=== PATIENT | male | born 1995 | race Caucasian/White ===

== ENCOUNTER 2020-03-22 07:01 | Emergency (ER) | payer SELFPAY ==
[2020-03-22 07:16] VITALS: BP 132/88; PULSE 58; RESP 18; TEMP 36.7; O2SAT 99; BMI 29.9
--- NOTE | 2020-03-22 07:31 | W.ED.EYEPROB ---
HPI - Eye Problem General: Chief complaint: Eye Problems Stated complaint: Left Eye Swelling/Pain Time Seen by Provider: 03/22/20 07:07 History of Present Illness: HPI Narrative: Patient comes in eye redness x2 and half days. Said he just laying on the couch and his eyes started burning hurting and is been red ever since. As this happened about 4 months ago chief complaint: eye redness Onset (ago): day(s) Onset description: gradual Duration: constant and progressively worsening Location: left eye Eye Symptoms: burning, redness and pain Place: home Mechanism: none Severity: moderate If Pain, Quality: burning Associated symptoms: Reports no associated symptoms; Denies fever(s) Treatments Prior to Arrival: none Review of Systems Const: Denies: fever(s) or chills Eyes: Reports: blurry vision and eye redness; Denies: eye discharge ENMT: Denies: throat pain, enlarged tonsils, mouth pain or nasal congestion Psych: Denies: anxiety or depression Physical Exam Const: COMMON NORMALS: no acute distress Eye: COMMON NORMALS: Equal, round and reactive pupils present ALIGNMENT: Yes alignment normal PERIORBITAL: periorbital findings normal EYELID: eyelids normal CONJUNCTIVA: Yes conjunctival abnormal (Very red left) positive left SCLERA: scleral abnormal Laterality of scleral abnormality: positive left (Very red) CORNEA: Yes corneas normal PUPIL: Yes Equal, round and reactive pupils present Psych: COMMON NORMALS: mental status grossly normal Course Vital Signs: Vital signs: Vital Signs Temperature 98.0 F 03/22/20 07:16 Pulse Rate 58 L 03/22/20 07:16 Respiratory Rate 18 03/22/20 07:16 Blood Pressure 132/88 03/22/20 07:16 Pulse Oximetry 99 03/22/20 07:16 Discharge Plan Discharge Patient Disposition: Home Clinical Impression: Acute iritis Condition: Stable Prescriptions: New Zaditor 0.025 % (0.035 %) drops 1 drp ophthalmic (eye) BID 7 Days Qty: 5 RF: 0 ciprofloxacin HCl 0.3 % drops 1 drp ophthalmic (eye) Q4H 5 Days Qty: 5 RF: 0 Discharge Orders: Discharge Order (Routine); Ordered 03/22/20 Ordered By: Farooq Ashby Referrals: Kandy Ureña MD [Primary Care Provider] - Discharge Diet: Usual diet Discharge Activity: Resume usual activity Patient Instructions: Iritis (ED) Activity Restrictions/Additional Instructions: Follow-up with medical provider as directed. Take medications as prescribed. Return to the ER or your medical provider if condition worsens. Please read and understand discharge instructions. If any questions ask please. Follow-up with [facility] if not better in 1 day Coding Level of Care Code ED Human Services Program Specialist for Harpreet Garnica
== END 2020-03-22 07:40 | disposition home or self-care (01) ==
PROVIDERS: Emergency Provider Nurse Practitioner Family; PCP Internal Medicine
DX: H20.00 Unspecified acute and subacute iridocyclitis (principal)
CPT/HCPCS: 12345; 99281; 99282

== ENCOUNTER → 2021-06-04 13:52 | Outpatient (BNVA) | payer OTHER, SELFPAY | PROVIDERS: PCP Internal Medicine; Visit Provider Registered Nurse | DX: Z20.822 Contact with and (suspected) exposure to COVID-19 (principal) | CPT/HCPCS: 87635 ==

== ENCOUNTER 2021-08-08 23:21 | Emergency (ER) | payer SELFPAY ==
[2021-08-08 23:29] VITALS: BP 147/102; PULSE 100; RESP 18; TEMP 36.6; O2SAT 97; BMI 34.2
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
[2021-08-09 00:12] LABS: Basophils % 0.6 %; Eosinophils % 0.6 %; Hematocrit 52.1 % (42.0-52.0); Lymphocytes # 2.9 10^3/uL (0.8-4.8); Lymphocytes % 41.6 %; Mean Corpuscular HGB Conc 34.5 g/dL (30.0-36.0); Mean Corpuscular Hemoglobin 29.2 pg (28.0-34.0); Mean Corpuscular Volume 84.4 fl (80-94); Mean Platelet Volume 9.8 fL (7.4-10.4); Monocytes # 0.6 10^3/uL (0.2-0.9); Monocytes % 8.4 %; Neutrophils # 3.34 10^3/uL (1.8-7.7); Neutrophils % 48.7 %; Nucleated Red Blood Cells % 0 %; Platelet Count 339 10^3/cmm (130-400); Red Blood Count 6.17 10^6/uL (4.1-5.3); Red Cell Distribution Width 12.6 % (12.1-15.1); White Blood Count 6.9 10^3/uL (4.0-10.0)
[2021-08-09 00:20] LABS: Add Urine Microscopic? YES; Bilirubin Urine Neg (Negative); Blood Urine Neg (Negative); Glucose Urine UA Norm (Normal); Ketones Urine Negative (Negative); Leukocyte Esterase Urine Negative (Negative); Mucus Urine TRACE /hpf; Nitrate Urine Negative (Negative); Protein Urine 1+ (Negative); Specific Gravity, Urine 1.015 (1.005-1.030); Urine Appearance Clear (CLEAR); Urine Color Straw (Yellow); Urobilinogen Urine Norm (Negative); pH Urine 6 (5-7)
[2021-08-09 00:21] LABS: Amphetamines Screen Urine Negative (Negative); Barbiturates Screen Urine Negative (Negative); Benzodiazepines Screen Urine Negative (Negative); Cocaine Screen Urine Negative (Negative); Opiate Screen Urine Negative (Negative); PCP Screen Urine Negative (Negative); THC Screen Urine Negative (Negative)
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
[2021-08-09 01:00] LABS: Alanine Aminotransferase 49 U/L (0-41); Albumin Level 5.2 g/dL (3.5-5.2); Alkaline Phosphatase 120 IU/L (40-130); Anion Gap 21.1 (5-19); Aspartate Amino Transferase 35 U/L (0-40); Blood Urea Nitrogen 7 mg/dL (6-20); Calcium 9.4 mg/dL (8.5-10.5); Carbon Dioxide 21 mmol/L (22-29); Chloride 102 mmol/L (98-107); Globulin 2.9 g/dL (1.3-4.6); Glomerular Filtration Rate 117.8 mL/min (90-130); Glucose 130 mg/dL (65-115); Osmolality Calculated 290 mOsm/kg (285-295); Potassium 4.1 mmol/L (3.5-5.1); Sodium 140 mmol/L (136-145); Total Bilirubin 0.4 mg/dL (0.15-1.2); Total Protein 8.1 g/dL (6.6-8.7)
[2021-08-09 01:09] LABS: Acetaminophen < 5.0 ug/mL (10-30); Salicylate < 0.3 mg/dL (3-10)
[2021-08-09 01:10] LABS: Alcohol Level 349 mg/dL (0-10)
[2021-08-09 01:17] VITALS: BP 142/88; PULSE 80; RESP 19; TEMP 36.8; O2SAT 98
--- NOTE | 2021-08-13 13:56 | DCPLANNER ---
residential field manager had message to speak with patient about services at [facility]. residential field manager called and spoke with patients mother and explained to her that patient would need to caity to [facility] and machine pecan picker the initial paperwork fill it out and turn it in. Then [facility] would call patient and schedule an assessment for patient.
== END 2021-08-09 01:19 | disposition home or self-care (01) ==
PROVIDERS: Nurse Practitioner Family; Emergency Provider Emergency Medicine
DX: F10.229 Alcohol dependence with intoxication, unspecified (principal); F32.A Depression, unspecified; T14.90XA Injury, unspecified, initial encounter; V09.9XXA Pedestrian injured in unspecified transport accident, initial encounter
CPT/HCPCS: 70450; 72100; 72125; 80053; 80306; 80307; 81001; 85025; 99282

== ENCOUNTER 2024-01-26 17:13 | Emergency (ER) | payer SELFPAY ==
[2024-01-26 17:28] VITALS: BP 147/102; PULSE 105; RESP 18; TEMP 36.9; O2SAT 96; BMI 33.3
--- NOTE | 2024-01-26 17:58 | W.ED.ALCOHOL ---
HPI - Alcohol General: Chief Complaint: Alcohol Stated Complaint: Alcohol detoxing dehydration Time Seen by Provider: 01/26/24 17:16 Source: patient Mode of arrival: ambulatory Limitations: no limitations History of Present Illness: 28-year-old male who states that he is been an alcoholic he states he has been drinking since he is 15 but is been drinking really heavy over the past year. He checked into [facility] and states that sent him here with concerns some dehydration states he has been having some nausea a slight tremor was concerned about possible withdrawal as he said no seizures. He denies any fevers Associated symptoms: Reports nausea; Deny abdominal pain Related Data Previous Rx's Medication Instructions Recorded ondansetron 4 mg disintegrating 4 mg PO Q6H PRN nausea and 01/26/24 tablet vomiting #14 tabs Allergies Allergy/AdvReac Type Severity Reaction Status Date / Time prednisone Allergy mess's Verified 05/19/22 15:27 with my head Review of Systems Const: Denies: fever(s), chills, body aches or change in appetite ENMT: Denies: throat pain or dental pain Card: Denies: chest pain Resp: Denies: dyspnea GI: Reports: nausea; Denies: abdominal pain or diarrhea Musc: Denies: neck pain or back pain Skin/Breast: Denies: rash Neuro: Denies: headache(s) All/Imm: Denies: urticaria PFSH ED PFSH: Social History Smoking and tobacco/nicotine status: never used tobacco/nicotine Alcohol intake: never Substance/Drug Use: never Adopted: No Caregiver/support person: No Lives independently: No Household members: spouse and children Current occupational status: employed Sexually active: Yes Do you think of yourself as: Straight/Heterosexual Current gender identity: Male Physical Exam Const: COMMON NORMALS: no acute distress, patient oriented x3 and healthy appearing HENMT: COMMON NORMALS: normocephalic and atraumatic HEAD & SCALP: normocephalic and atraumatic Eye: COMMON NORMALS: Equal, round and reactive pupils present and EOMs intact bilaterally PUPIL: Yes Equal, round and reactive pupils present Neck/C-Spine: COMMON NORMALS: full ROM and supple Chest: COMMONS NORMALS: normal inspection of the chest and normal palpation of entire chest wall Resp: COMMON NORMALS: normal respiratory effort, No retractions, No use of accessory muscles and clear to auscultation bilaterally AUSCULTATION: clear to auscultation bilaterally Cardio: COMMON NORMALS: regular rate, regular rhythm and No murmurs present (Cardio) RATE: regular rate RHYTHM: regular rhythm GI: COMMON NORMALS: Normal to inspection, nondistended, normoactive bowel sounds present, Soft to palpation, non-tender and no masses PALPATION: Yes Soft to palpation Extremity: COMMON NORMALS: normal to inspection and full ROM Neuro: COMMON NORMALS: patient oriented x3, moves all extremities and no focal motor deficits Psych: COMMON NORMALS: mental status grossly normal, Normal thought process present and cooperative THOUGHT PROCESS: Normal thought process present Skin: COMMON NORMALS: no rashes or lesions noted and no wounds GENERAL SKIN EXAM: no rashes or lesions noted Course Vital Signs: Vital signs: Vital Signs Temperature 98.4 F 01/26/24 17:28 Pulse Rate 80 01/26/24 19:01 Respiratory Rate 18 01/26/24 19:01 Blood Pressure 126/90 01/26/24 19:01 Pulse Oximetry 95 01/26/24 19:01 Oxygen Delivery Me thod Room Air 01/26/24 18:31 MDM - Alcohol Medical Decision Making Patient presents with alcohol intoxication with nausea he has no signs of withdrawal here did give him thiamine 1 dose of Ativan he is stable to be discharged back to [facility] return if worsening. Medical Records I reviewed the patient's medical records. Lab Data I reviewed the patient's lab results. 01/26/24 17:57 01/26/24 17:57 Laboratory Results WBC 6.80 10^3/uL (3.29-11.43) 01/26/24 17:57 RBC 5.17 10^6/uL (3.85-5.65) 01/26/24 17:57 Hgb 15.60 g/dL (11.27-16.99) 01/26/24 17:57 Hct 45.2 % (37-53) 01/26/24 17:57 MCV 87.4 fl (82-101) 01/26/24 17:57 MCH 30.2 pg (27-33) 01/26/24 17:57 MCHC 34.5 g/dL (30-55) 01/26/24 17:57 RDW 13.6 % (12.1-15.1) 01/26/24 17:57 Plt Count 284 10^3/cmm (157-399) 01/26/24 17:57 MPV 9.1 fL (7.4-10.4) 01/26/24 17:57 Neut % (Auto) 50.2 % 01/26/24 17:57 Lymph % (Auto) 41.3 % 01/26/24 17:57 Brown % (Auto) 6.6 % 01/26/24 17:57 Eos % (Auto) 0.9 % 01/26/24 17:57 Baso % (Auto) 0.7 % 01/26/24 17:57 Neut # (Auto) 3.41 10^3/uL (1.8-7.7) 01/26/24 17:57 Lymph # (Auto) 2.8 10^3/uL (0.8-4.8) 01/26/24 17:57 Brown # (Auto) 0.5 10^3/uL (0.2-0.9) 01/26/24 17:57 Eos # (Auto) 0.1 10^3/uL (0.0-0.8) 01/26/24 17:57 Baso # (Auto) 0.1 10^3/uL (0.0-0.1) 01/26/24 17:57 Nucleated RBC % (auto) 0 % 01/26/24 17:57 Nucleated RBCs # 0.0 /100WBC 01/26/24 17:57 Sodium 139 mmol/L (136-145) 01/26/24 17:57 Potassium 3.5 mmol/L (3.5-5.1) 01/26/24 17:57 Chloride 99 mmol/L (98-107) 01/26/24 17:57 Carbon Dioxide 23 mmol/L (22-29) 01/26/24 17:57 Anion Gap 20.5 (5-19) H 01/26/24 17:57 BUN 10 mg/dL (6-20) 01/26/24 17:57 Creatinine 0.9 mg/dL (0.7-1.2) 01/26/24 17:57 GFR Calculation 100.5 mL/min (90-130) 01/26/24 17:57 Glucose 92 mg/dL (65-115) 01/26/24 17:57 Calculated Osmolality 287 mOsm/kg (285-295) 01/26/24 17:57 Calcium 8.6 mg/dL (8.5-10.5) 01/26/24 17:57 Total Bilirubin 0.2 mg/dL (0.15-1.2) 01/26/24 17:57 AST 39 U/L (0-40) 01/26/24 17:57 ALT 40 U/L (0-41) 01/26/24 17:57 Alkaline Phosphatase 87 U/L (40-130) 01/26/24 17:57 Total Protein 7.2 g/dL (6.6-8.7) 01/26/24 17:57 Albumin 4.5 g/dL (3.5-5.2) 01/26/24 17:57 Globulin 2.7 g/dL (1.3-4.6) 01/26/24 17:57 Ethyl Alcohol 230 mg/dL (0-10) H 01/26/24 17:57 All radiology interpretation(s) finalized by discharge Discharge Plan Discharge Patient Disposition: Home Clinical Impression: Alcoholic intoxication, Nausea Condition: Stable Prescriptions: New ondansetron 4 mg tablet,disintegrating 4 mg PO Q6H PRN (Reason: nausea and vomiting) Qty: 14 0RF Discharge Orders: Discharge ED (Routine); Ordered 01/26/24 Ordered By: Jose Carlos Jefferson Discharge Diet: Advance as tolerated Discharge Activity: Resume usual activity Patient Instructions: Abuse of Alcohol (ED) Coding Level of Care Code ED Pediatrician Managing Partner for Harpreet Garnica
[2024-01-26 18:01] LABS: Basophils # 0.1 10^3/uL (0.0-0.1); Basophils % 0.7 %; Eosinophils # 0.1 10^3/uL (0.0-0.8); Eosinophils % 0.9 %; Hematocrit 45.2 % (37-53); Lymphocytes # 2.8 10^3/uL (0.8-4.8); Lymphocytes % 41.3 %; Mean Corpuscular HGB Conc 34.5 g/dL (30-55); Mean Corpuscular Hemoglobin 30.2 pg (27-33); Mean Corpuscular Volume 87.4 fl (82-101); Mean Platelet Volume 9.1 fL (7.4-10.4); Monocytes # 0.5 10^3/uL (0.2-0.9); Monocytes % 6.6 %; Neutrophils # 3.41 10^3/uL (1.8-7.7); Neutrophils % 50.2 %; Nucleated Red Blood Cells % 0 %; Platelet Count 284 10^3/cmm (157-399); Red Blood Count 5.17 10^6/uL (3.85-5.65); Red Cell Distribution Width 13.6 % (12.1-15.1)
[2024-01-26] MEDS: LORazepam 2 mg/mL INJ 1 mL 1 MG IVP (18:13)
[2024-01-26] MEDS: sodium chloride 0.9% 1,000 ML 999 ML IV ×2 (18:18→18:31)
[2024-01-26 18:26] LABS: Alanine Aminotransferase 40 U/L (0-41); Albumin Level 4.5 g/dL (3.5-5.2); Alcohol Level 230 mg/dL (0-10); Alkaline Phosphatase 87 U/L (40-130); Anion Gap 20.5 (5-19); Aspartate Amino Transferase 39 U/L (0-40); Blood Urea Nitrogen 10 mg/dL (6-20); Calcium 8.6 mg/dL (8.5-10.5); Carbon Dioxide 23 mmol/L (22-29); Chloride 99 mmol/L (98-107); Creatinine Clr Calc Pharmacy 148.4574; Globulin 2.7 g/dL (1.3-4.6); Glomerular Filtration Rate 100.5 mL/min (90-130); Glucose 92 mg/dL (65-115); Osmolality Calculated 287 mOsm/kg (285-295); Potassium 3.5 mmol/L (3.5-5.1); Sodium 139 mmol/L (136-145); Total Bilirubin 0.2 mg/dL (0.15-1.2); Total Protein 7.2 g/dL (6.6-8.7)
[2024-01-26 18:31] VITALS: BP 143/98; PULSE 92; RESP 18; O2SAT 93
[2024-01-26 19:01] VITALS: BP 126/90; PULSE 80; RESP 18; O2SAT 95
== END 2024-01-26 19:42 | disposition home or self-care (01) ==
PROVIDERS: Emergency Provider Emergency Medicine
DX: F10.129 Alcohol abuse with intoxication, unspecified (principal); Y90.7 Blood alcohol level of 200-239 mg/100 ml; R11.0 Nausea
CPT/HCPCS: 36415; 80053; 80307; 85025; 96374; 96375; 99284; J2060; J3411; J7030